=== PATIENT | male | born 1995 | race Two or more races ===

== ENCOUNTER 2020-08-16 09:00 | Outpatient (CLI) | payer OTHER | END 2020-08-16 15:00 | disposition home or self-care (01) | LOC: PPH VACUNA 09:00 | DX: Z23 Encounter for immunization (principal) ==

== ENCOUNTER → 2021-06-26 | Outpatient (CLI) | payer OTHER | END | disposition home or self-care (01) | LOC: LAB 11:26 | PROVIDERS: ATTEND Emergency Medicine Pediatric Emergency Medicine | DX: Z03.818 Encounter for observation for suspected exposure to other biological agents ruled out (principal) ==

== ENCOUNTER 2022-09-04 08:00 | Outpatient (CLI) | payer OTHER | END 2022-09-04 08:05 | disposition home or self-care (01) | LOC: PPH VACUNA 08:00 | PROVIDERS: ATTEND Emergency Medicine Pediatric Emergency Medicine | DX: Z23 Encounter for immunization (principal) ==

== ENCOUNTER 2023-01-21 13:39 | Outpatient (CLI) | payer OTHER | END 2023-01-21 14:07 | disposition home or self-care (01) | LOC: LAB 13:39 | PROVIDERS: ATTEND Anesthesiology | DX: Z01.84 Encounter for antibody response examination (principal) ==

== ENCOUNTER 2024-02-01 15:00 | Outpatient (CLI) | payer OTHER | END 2024-02-01 15:10 | disposition home or self-care (01) | LOC: PPH VACUNA 15:00 | PROVIDERS: ATTEND Emergency Medicine Pediatric Emergency Medicine | DX: Z23 Encounter for immunization (principal) ==

== ENCOUNTER 2024-08-31 09:40 | Outpatient (CLI) | payer OTHER | END 2024-08-31 10:00 | disposition home or self-care (01) | LOC: PPH VACUNA 09:40 | PROVIDERS: ATTEND Emergency Medicine Pediatric Emergency Medicine | DX: Z23 Encounter for immunization (principal) ==

== ENCOUNTER 2025-01-26 13:00 | Emergency (ER) | payer OTHER ==
[~2025-01-26] VITALS: Ht 172.7 cm; Wt 54.4 kg
== END 2025-01-26 15:46 | disposition home or self-care (01) ==
LOC: ER 13:02
DX: B34.9 Viral infection, unspecified (principal)

== ENCOUNTER 2025-11-06 13:00 | Outpatient (CLI) | payer OTHER | END 2025-11-06 13:10 | disposition home or self-care (01) | LOC: PPH VACUNA 13:00 | PROVIDERS: ATTEND Emergency Medicine Pediatric Emergency Medicine | DX: Z23 Encounter for immunization (principal) ==